=== PATIENT | female | born 1965 | race African-American/Black ===

== ENCOUNTER 2022-01-06 20:08 | Emergency (ER) | payer MEDICAID ==
[~2022-01-06] VITALS: Ht 165.1 cm; Wt 64.0 kg
[~2022-01-06 20:08] MED LIST: ALBU18HF2 IH; DOCU250C69 MT; FLUT1DIS3 INH; HALDOL; LEVO750T21 MT
[2022-01-06 21:54] LABS: BASOPHILS % 0.8 % (0.0-2.0); EOSINOPHILS % 0.3 % (0.0-5.0); HEMOGLOBIN. 14.4 g/dL (12.0-16.0); LYMPHOCYTES % 45.5 % (20.0-50.0); MEAN CORPUSCULAR HEMOGLOBIN 26.1 pg (28.0-32.0); MEAN PLATELET VOLUME 9.1 fl (7.4-10.4); MONOCYTES % 5.2 % (2.0-8.0); NEUTROPHILS % 48.2 % (40.0-76.0); PLATELET 220 x1000/uL (130-400); RED CELL DISTRIBUTION WIDTH 16.1 % (11.6-14.6)
[2022-01-06 22:07] LABS: CHLORIDE 108 mEq/L (98-107)
[2022-01-06 22:15] LABS: CLARITY URINE CLOUDY (CLEAR); COLOR URINE DARK YELLOW (YELLOW); KETONES URINE TRACE (NEGATIVE); LEUKOCYTE ESTERASE URINE 1+ (NEGATIVE); NITRITE URINE NEGATIVE (NEGATIVE); OCCULT BLOOD URINE NEGATIVE (NEGATIVE); PH URINE 5.5 (4.5-8.0); PROTEIN URINE 2+ (NEGATIVE); SPECIFIC GRAVITY URINE 1.024 (1.005-1.030)
[2022-01-06 22:17] LABS: ETHANOL BLOOD < 10 mg/dL
[2022-01-06 22:48] LABS: *AMPHETAMINES SCREEN URINE NEGATIVE (NEGATIVE); *BARBITURATES SCREEN URINE NEGATIVE (NEGATIVE); *BENZODIAZEPINES SCREEN URINE NEGATIVE (NEGATIVE); *COCAINE SCREEN URINE PRESUMTIVE POSITIVE (NEGATIVE); CANNABINOID URINE SCREEN NEGATIVE (NEGATIVE); METHADONE URINE SCREEN NEGATIVE (NEGATIVE); OPIATES URINE SCREEN NEGATIVE (NEGATIVE); PHENCYCLIDINE URINE SCREEN NEGATIVE (NEGATIVE)
[2022-01-06] MEDS ORDERED: BACITRACIN ZINC OINT UDPKT TOP ONE (23:15)
[2022-01-06] MEDS ORDERED: ACETAMINOPHEN 325MG TABLET PO ONE (23:15)
[2022-01-07] MEDS: OLANZAPINE 2.5MG TABLET PO SCH ×2 (10:00→15:52)
[2022-01-08 08:10] VITALS: BP 121/75
[2022-01-08] MEDS: OLANZAPINE 2.5MG TABLET PO SCH (10:41)
== END 2022-01-08 15:28 | disposition home or self-care (01) ==
LOC: ER 20:08
DX: S61.512A Laceration without foreign body of left wrist, initial encounter (principal); F14.129 Cocaine abuse with intoxication, unspecified; F32.A Depression, unspecified; F20.9 Schizophrenia, unspecified; F17.210 Nicotine dependence, cigarettes, uncomplicated; Z75.1 Person awaiting admission to adequate facility elsewhere; Z20.822 Contact with and (suspected) exposure to COVID-19; X78.1XXA Intentional self-harm by knife, initial encounter; Y93.89 Activity, other specified; Y92.018 Other place in single-family (private) house as the place of occurrence of the external cause
CPT/HCPCS: 36415; 71045; 80053; 80305; 80307; 80320; 80329; 81003; 85025; 93005; 99285; C9803; U0003; U0005; G0480

== ENCOUNTER 2023-03-19 01:45 | Emergency (ER) | payer MEDICAID, OTHER ==
[~2023-03-19] VITALS: Ht 162.6 cm; Wt 58.0 kg
[2023-03-19 01:47] VITALS: O2SAT 98
[2023-03-19] MEDS ORDERED: HALOPERIDOL LACTATE 5MG/ML VIAL IM STA (02:29)
[2023-03-19] MEDS ORDERED: LORAZEPAM 2MG/ML CPJ IM STA (02:29)
[2023-03-19 03:35] LABS: HEMATOCRIT. 31.2 % (36.0-48.0); HEMOGLOBIN. 8.9 g/dL (12.0-16.0); MEAN CORPUSCULAR HGB CONC 28.3 g/dL (31.0-37.0); MEAN CORPUSCULAR VOLUME 59.9 fL (81.0-99.0); RED BLOOD CELL COUNT 5.21 mill/uL (4.2-5.4); RED CELL DISTRIBUTION WIDTH 22.4 % (11.6-14.6); WHITE BLOOD COUNT 9.5 x1000/uL (4.5-11.0)
[2023-03-19 03:48] LABS: CHLORIDE 103 mEq/L (98-107); INDEX HEMOLYSI 1 (1-3); INDEX ICTERIC 2 (1-4); INDEX LIPEMIC 1 (1-3); POTASSIUM 4.2 mEq/L (3.5-5.1); SODIUM 139 mEq/L (136-145)
[2023-03-19 03:55] LABS: ACETAMINOPHEN <2 ug/mL ug/mL (10-30); ALANINE AMINOTRANSFERASE 41 IU/L (13-61); ALBUMIN 3.6 g/dL (3.4-5.0); ASPARTATE AMINOTRANSFERASE 73 IU/L (15-37); BILIRUBIN TOTAL 2.7 mg/dL (0.1-1.0); CALCIUM 8.5 mg/dL (8.5-10.1); CARBON DIOXIDE 23 mEq/L (21-32); CREATININE 1.5 mg/dL (0.6-1.3); ETHANOL BLOOD < 10 mg/dL (-10); GLUCOSE 86 mg/dL (70-105); PROTEIN TOTAL 9.1 g/dL (6.0-8.3); UREA NITROGEN BLOOD 39 mg/dL (7-21)
[2023-03-19] MEDS ORDERED: FUROSEMIDE 20MG/2ML VIAL IVP STA (03:59)
[2023-03-19 04:23] LABS: DIFFERENTIAL COMMENT 1
[2023-03-19 05:15] LABS: PLATELET 209 x1000/uL (130-400)
[2023-03-19 05:16] LABS: MEAN PLATELET VOLUME 9.2 fl (7.4-10.4)
[2023-03-19 05:25] LABS: MICROCYTOSIS 2+
[2023-03-19 05:26] LABS: ANISOCYTOSIS 2+
[2023-03-19 05:27] LABS: PLATELET ESTIMATE NORMAL
[2023-03-19] MEDS ORDERED: HALOPERIDOL LACTATE 5MG/ML VIAL IM NR (05:45)
[2023-03-19] MEDS ORDERED: LORAZEPAM 2MG/ML CPJ IM NR (05:45)
[2023-03-19 06:10] LABS: CLARITY URINE CLEAR (CLEAR); COLOR URINE YELLOW (YELLOW); GLUCOSE URINE NEGATIVE (NEGATIVE); KETONES URINE NEGATIVE (NEGATIVE); LEUKOCYTE ESTERASE URINE NEGATIVE (NEGATIVE); NITRITE URINE NEGATIVE (NEGATIVE); OCCULT BLOOD URINE NEGATIVE (NEGATIVE); PH URINE 6.5 (4.5-8.0); PROTEIN URINE NEGATIVE (NEGATIVE); SPECIFIC GRAVITY URINE 1.009 (1.005-1.030)
[2023-03-19 06:12] LABS: BACTERIA URINE NONE SEEN; YEAST URINE NONE SEEN
[2023-03-19 06:21] LABS: *AMPHETAMINES SCREEN URINE NEGATIVE (NEGATIVE); *BARBITURATES SCREEN URINE NEGATIVE (NEGATIVE); *BENZODIAZEPINES SCREEN URINE NEGATIVE (NEGATIVE); *COCAINE SCREEN URINE PRESUMTIVE POSITIVE (NEGATIVE); CANNABINOID URINE SCREEN NEGATIVE (NEGATIVE); ECSTASY MDMA SCREEN URINE NEGATIVE (NEGATIVE); METHADONE URINE SCREEN NEGATIVE (NEGATIVE); OPIATES URINE SCREEN NEGATIVE (NEGATIVE); PHENCYCLIDINE URINE SCREEN NEGATIVE (NEGATIVE)
[2023-03-19 07:12] LABS: SQUAMOUS EPITHELIAL CELL URINE FEW /lpf (RARE/1+)
[2023-03-19 07:13] LABS: RBC URINE 0-2 /hpf (0-2)
[2023-03-19] MEDS: FUROSEMIDE 20MG TABLET PO SCH (09:00)
[2023-03-19] MEDS: OLANZAPINE 5MG TABLET ODT PO SCH ×2 (11:15→19:40)
[2023-03-19] MEDS ORDERED: CLONIDINE 0.1MG TABLET PO ONE (14:00)
[2023-03-19] MEDS ORDERED: SODIUM CHLORIDE 0.9% 1,000 ML IV ONE ×2 (15:30→18:45)
[2023-03-20] MEDS ORDERED: CARVEDILOL 3.125 MG TABLET PO ONE (05:15)
[2023-03-20] MEDS: OLANZAPINE 5MG TABLET ODT PO SCH (09:00)
[2023-03-20] MEDS: FUROSEMIDE 20MG TABLET PO SCH (09:00)
[2023-03-20 18:31] VITALS: BP 100/78; PULSE 79; RESP 16; TEMP 97.8
== END 2023-03-20 19:09 | disposition short-term general hospital (02) ==
LOC: ER 01:45
DX: R45.851 Suicidal ideations (principal); I11.0 Hypertensive heart disease with heart failure; I50.9 Heart failure, unspecified; F17.200 Nicotine dependence, unspecified, uncomplicated; Z20.822 Contact with and (suspected) exposure to COVID-19
CPT/HCPCS: 80053; 80305; 81003; 80307; 80329; 80320; 85025; 36415; 71045; 93005; 96361; 96372; 96374; 99291; 87426; J1940; J1630; J2060; J7030; C9803; Z7610 ×2; G0480